=== PATIENT | male | born 1985 | race Two or more races ===

== ENCOUNTER 2017-03-29 16:26 | Emergency (ER) | payer OTHER, SELFPAY ==
[2017-03-29 16:30] VITALS: BP 133/67; PULSE 68; RESP 15; TEMP 36.6; O2SAT 99; BMI 25.8
--- NOTE | 2017-03-29 16:38 | HMH.EDNVD ---
ED Disposition Clinical Impression: Nausea, vomiting, and diarrhea Disposition: Home, Self-Care Condition on Discharge: Good Additional Instructions: 1- gotrade 16 oz q 4 2- observe 4-5 uop a day 3- follow up with a pcp, please give him a list.. 4- return if needed. - Critical Care Critical Care Time: No Attestation: On , the high probability of a clinically significant, sudden or life threatening deterioration of the following system(s) required my full and direct attention, intervention and personal management. The time I documented below is in addition to time spent performing reported procedures but includes the following listed in this critical care notation. Medical Decision Making - Medical Records Medical records reviewed: Yes: I reviewed the patient's medical records. Vital Signs: 03/29/17 16:30 Temperature 97.9 F Temperature Source Oral Pulse Rate [Right Brachial] 68 Respiratory Rate 15 Blood Pressure [Right Arm] 133/67 Blood Pressure Mean [Right Arm] 89 Blood Pressure Source [Right Arm] Automatic Cuff Blood Pressure Position [Right Arm] Sitting 02 Sat by Pulse Oximetry 99 Oxygen Delivery Method Room Air - Lab Data Lab Results 03/29/17 16:44: WBC 11.3 H, RBC 5.29, Hgb 16.4, Hct 47.9, MCV 90.5, MCH 31.0, MCHC 34.2, RDW 12.4, Plt Count 215, MPV 8.8, Neut % (Auto) 87.8 H, Lymph % (Auto) 7.3 L, [place] % (Auto) 2.8, Eos % (Auto) 1.8, Baso % (Auto) 0.2, Neut # (Auto) 10.0 H, Lymph # (Auto) 0.8, [place] # (Auto) 0.3, Eos # (Auto) 0.2, Baso # (Auto) 0.0, Total Counted 100, Neutrophils % (Manual) 91 H, Lymphocytes % (Manual) 8 L, Monocytes % (Manual) 1 L, Platelet Estimate Normal, RBC Morphology Normal 03/29/17 16:44: Sodium 139, Potassium 3.4 L, Chloride 104, Carbon Dioxide 27, Anion Gap 11.4, BUN 21 H, Creatinine 0.90, Estimated Creat Clear 127, Estimated GFR 97, Est GFR ( Amer) 118, Glucose 103, Calcium 8.5, Total Bilirubin 0.8, AST 13 L, ALT 33, Alkaline Phosphatase 84, Troponin I < 0.02, Total Protein 7.5, Albumin 4.1, Globulin 3.4 H, Albumin/Globulin Ratio 1.2, Lipase 66 L 03/29/17 16:44: Magnesium 1.7 Result diagrams: 03/29/17 16:44 03/29/17 16:44 Orders (Tests/Meds): ED MEDICATIONS Discontinued Medications Generic Name Dose Route Start Last Admin Trade Name Miri PRN Reason Stop Dose Admin Sodium Chloride 1,000 mls @ 999 mls/hr 03/29/17 16:45 03/29/17 16:50 Sod Chlor 0.9% 1000ml Bag IV 03/29/17 17:45 999 mls/hr .Q1H1M MANUEL Administration Ondansetron HCl 4 mg 03/29/17 16:37 03/29/17 16:50 Zofran 4mg/2ml Vial IV 03/29/17 16:38 4 mg ONCE ONE Administration Potassium Chloride 20 meq 03/29/17 17:43 03/29/17 17:50 Klor-Con 20meq Tablet PO 03/29/17 17:44 20 meq ONCE ONE Administration ORDERS Category Date Time Status Acute abdomen XR series [XR acute abdomen series] Stat Exams 03/29/17 16:45 Taken Diarrhea Panel, PCR Stat Lab 03/29/17 16:37 Ordered Urinalysis and Microscopic Stat Lab 03/29/17 16:36 Ordered - Radiology Data #1 Image(s): Chest, Abdomen Image Reviewed: Yes I reviewed the patient's radiology image - Joel Inquiry Pt receiving controlled substance: No Joel was queried for this patient: No Medical Decision Making Narrative: The patient felt better he received supplemental potassium and tolerated clear liquid intake. He did not want to donate urine or stool sample for examination. Quested to be discharged. I advised him for clear liquids for 2 days before he goes on soft diet. No spicy food. He will need to follow-up with a primary care physician. He will need to return if symptoms persist. Nausea/Vomiting/Diarrhea HPI - General Stated complaint: Vomiting, Diaherra, stomach ache - History of Present Illness HPI Narrative: 31 years old [place] male. With history of congenital heart disease and left elbow fracture as a child. Currently he has no medical problems as and is not
[2017-03-29 16:41] VITALS: BMI 25.8
--- NOTE | 2017-03-29 16:41 | ED_ITS ---
ED Disposition Clinical Impression: Nausea, vomiting, and diarrhea Disposition: Home, Self-Care Condition on Discharge: Good Additional Instructions: 1- gotrade 16 oz q 4 2- observe 4-5 uop a day 3- follow up with a pcp, please give him a list.. 4- return if needed. - Critical Care Critical Care Time: No Attestation: On , the high probability of a clinically significant, sudden or life threatening deterioration of the following system(s) required my full and direct attention, intervention and personal management. The time I documented below is in addition to time spent performing reported procedures but includes the following listed in this critical care notation. Medical Decision Making - Medical Records Medical records reviewed: Yes: I reviewed the patient's medical records. Vital Signs: 03/29/17 16:30 Temperature 97.9 F Temperature Source Oral Pulse Rate [Right Brachial] 68 Respiratory Rate 15 Blood Pressure [Right Arm] 133/67 Blood Pressure Mean [Right Arm] 89 Blood Pressure Source [Right Arm] Automatic Cuff Blood Pressure Position [Right Arm] Sitting 02 Sat by Pulse Oximetry 99 Oxygen Delivery Method Room Air - Lab Data Lab Results 03/29/17 16:44: WBC 11.3 H, RBC 5.29, Hgb 16.4, Hct 47.9, MCV 90.5, MCH 31.0, MCHC 34.2, RDW 12.4, Plt Count 215, MPV 8.8, Neut % (Auto) 87.8 H, Lymph % (Auto ) 7.3 L, [place] % (Auto) 2.8, Eos % (Auto) 1.8, Baso % (Auto) 0.2, Neut # (Auto) 10.0 H, Lymph # (Auto) 0.8, [place] # (Auto) 0.3, Eos # (Auto) 0.2, Baso # (Auto) 0.0, Total Counted 100, Neutrophils % (Manual) 91 H, Lymphocytes % (Manual) 8 L , Monocytes % (Manual) 1 L, Platelet Estimate Normal, RBC Morphology Normal 03/29/17 16:44: Sodium 139, Potassium 3.4 L, Chloride 104, Carbon Dioxide 27, Anion Gap 11.4, BUN 21 H, Creatinine 0.90, Estimated Creat Clear 127, Estimated GFR 97, Est GFR ( Amer) 118, Glucose 103, Calcium 8.5, Total Bilirubin 0.8, AST 13 L, ALT 33, Alkaline Phosphatase 84, Troponin I < 0.02, Total Protein 7.5, Albumin 4.1, Globulin 3.4 H, Albumin/Globulin Ratio 1.2, Lipase 66 L 03/29/17 16:44: Magnesium 1.7 Result diagrams: 03/29/17 16:44 03/29/17 16:44 Orders (Tests/Meds): ED MEDICATIONS Discontinued Medications Generic Name Dose Route Start Last Admin Trade Name Freq PRN Reason Stop Dose Admin Sodium Chloride 1,000 mls @ 999 mls/hr 03/29/17 16:45 03/29/17 16:50 Sod Chlor 0.9% 1000ml Bag IV 03/29/17 17:45 999 mls/hr .Q1H1M MANUEL Administration Ondansetron HCl 4 mg 03/29/17 16:37 03/29/17 16:50 Zofran 4mg/2ml Vial IV 03/29/17 16:38 4 mg ONCE ONE Administration Potassium Chloride 20 meq 03/29/17 17:43 03/29/17 17:50 Klor-Con 20meq Tablet PO 03/29/17 17:44 20 meq ONCE ONE Administration ORDERS Category Date Time Status Acute abdomen XR series [XR acute abdomen series] Stat Exams 03/29/17 16:45 Taken Diarrhea Panel, PCR Stat Lab 03/29/17 16:37 Ordered Urinalysis and Microscopic Stat Lab 03/29/17 16:36 Ordered - Radiology Data #1 Image(s): Chest, Abdomen Image Reviewed: Yes I reviewed the patient's radiology image - Joel Inquiry Pt receiving controlled substance: No Joel was queried for this patient: No Medical Decision Making Narrative: The patient felt better h
--- NOTE | 2017-03-29 16:45 | XR_ITS ---
XR acute abdomen series HISTORY: Nausea and vomiting and diarrhea ITS.REASON: NVD ORDERING PHYSICIAN: Stephy Hernandez MD PATIENT AGE: 31 years COMPARISON: None FINDINGS: Frontal view of the chest shows no acute finding. Bowel gas pattern is nonspecific. No evidence of intestinal obstruction or free air. No acute bony anomalies there is a faint density between the left L1 and L2 transverse process measuring 5 mm which could represent a ureteral stone. CT may be of further value if clinically warranted. IMPRESSION: Possible left proximal ureteral stone otherwise negative
[2017-03-29 16:56] LABS: Basophils % 0.2 % (0.1-2.0); Eosinophils # 0.2 K/mm3 (0.0-0.4); Eosinophils % 1.8 % (0.1-12.0); Hematocrit 47.9 % (42.0-52.0); Hemoglobin 16.4 g/dL (14.1-18.0); Lymphocytes # 0.8 K/mm3 (0.7-4.5); Lymphocytes % 7.3 K/mm3 (10-50); Mean Corpuscular HGB Conc 34.2 g/dL (31.8-35.4); Mean Corpuscular Volume 90.5 fl (80-94); Mean Platelet Volume 8.8 fl (7.4-10.4); Monocytes # 0.3 K/mm3 (0.1-1.0); Monocytes % 2.8 % (1.7-9.3); Neutrophils % 87.8 % (37.0-80.0); Platelet Count 215 K/mm3 (142-424); Red Blood Count 5.29 M/mm3 (4.60-6.20); Red Cell Distribution Width 12.4 % (11.5-17.5); White Blood Count 11.3 K/mm3 (4.8-10.8)
[2017-03-29 16:58] LABS: MANUAL DIFFERENTIAL MANUAL DIFFERENTIAL (MANUAL DIFF)
[2017-03-29 17:00] LABS: Magnesium 1.7 mg/dL (1.4-2.2)
[2017-03-29 17:08] LABS: Alanine Aminotransferase 33 U/L (12-78); Albumin Level 4.1 gm/dL (3.4-5.0); Albumin/Globulin Ratio 1.2 (1.1-1.8); Alkaline Phosphatase 84 U/L (46-116); Anion Gap 11.4 mEq/L (5-15); Aspartate Amino Transferase 13 U/L (15-37); Bilirubin,Total 0.8 mg/dL (0.2-1.0); Blood Urea Nitrogen 21 mg/dL (7-18); Calcium 8.5 mg/dL (8.5-10.1); Carbon Dioxide 27 mmol/L (21.0-32.0); Chloride 104 mmol/L (98-107); Creatinine Clearance Estimated 127 mL/min (0-300); Estimated Glomerular Filt Rate 97 ml/min (>60); GFR (African American) 118 ML/MIN (>60); Globulin 3.4 gm/dl (1.3-3.2); Glucose 103 mg/dL (74-106); Lipase 66 u/L (73-393); Potassium 3.4 mmoL/L (3.5-5.1); Sodium 139 mmol/L (136-145); Total Protein,Serum 7.5 gm/dL (6.4-8.2); Troponin I < 0.02 ng/ml (0.00-0.06)
[2017-03-29 17:19] LABS: Lymphocytes % 8 % (10-50); Monocytes % 1 % (2-9); Neutrophils % 91 % (42-76); Platelet Estimate Normal; RBC Morphology Normal; Total Cells Counted 100
[2017-03-29 18:27] VITALS: BP 120/71; PULSE 69; RESP 16; TEMP 36.9; O2SAT 100
== END 2017-03-29 18:28 | disposition home or self-care (01) ==
PROVIDERS: Emergency Provider Emergency Medicine
DX: R11.2 Nausea with vomiting, unspecified (principal); R19.7 Diarrhea, unspecified
CPT/HCPCS: 74021; 80053; 83690; 83735; 84484; 85007; 85025; 96365; 96374; 96375; 99283; J2405

== ENCOUNTER 2019-06-03 09:44 | Emergency (ER) | payer OTHER, SELFPAY ==
[2019-06-03 09:50] VITALS: BP 135/86; PULSE 70; RESP 16; TEMP 36.9; O2SAT 97; BMI 22.8
--- NOTE | 2019-06-03 10:28 | HMH.EDDENT ---
ED Disposition Clinical Impression: Toothache, Dental caries, Fracture of tooth Disposition: Home, Self-Care Condition on Discharge: Good Instructions: Tooth Abscess, DI for Chronic Pain -- Adult Prescriptions: clindamycin HCL [Clindamycin HCl] 300 mg PO TID 10 Days #30 cap Transmission Status: Pending to [facility] Ketorolac Tromethamine [Toradol 10mg tablet] 10 mg PO Q6H 5 Days #20 tab Transmission Status: Pending to [facility] Referrals: Provider,Referral, [Primary Care Provider] - - Critical Care Critical Care Time: No Attestation: On 06/03/19, the high probability of a clinically significant, sudden or life threatening deterioration of the following system(s) required my full and direct attention, intervention and personal management. The time I documented below is in addition to time spent performing reported procedures but includes the following listed in this critical care notation. Medical Decision Making - Medical Records Medical records reviewed: Yes: I reviewed the patient's medical records. - Joel Inquiry Pt receiving controlled substance: No Vital Signs: 06/03/19 09:50 Temperature 98.4 F Temperature Source Oral Pulse Rate [Right Radial] 70 Respiratory Rate 16 Blood Pressure [Right Arm] 135/86 Blood Pressure Mean [Right Arm] 102 Blood Pressure Source [Right Arm] Automatic Cuff Blood Pressure Position [Right Arm] Sitting 02 Sat by Pulse Oximetry 97 Oxygen Delivery Method Room Air - Lab Data Lab results reviewed: Yes: I reviewed the patient's lab results. Dental HPI - General Chief complaint: Dental/Oral Stated complaint: tooth ache Time Seen by Provider: 06/03/19 10:28 Mode of Arrival: Ambulatory Limitations: No Limitations Description of Symptoms (Recalled from ER Triage Doc. by RN): Pt c/o R sided dental pain on top and bottom of mouth x2 days. - History of Present Illness HPI Narrative: 33-year-old male presents the ED complaining of tooth pain. He states that 1 of his bottom teeth has fractured and since then he has had some jaw swelling and some pain that is radiated from the outer part of his jaw up to the side of his head. Patient rates his pain as sharp and states his pain is currently 7 out of 10. He states exacerbating factors including drinking cold fluids and eating. Alleviating factors include warm liquids. Patient denies any recent fever shakes or chills. Patient denies any nausea vomiting or diarrhea. MD Complaint: tooth pain Onset (ago): hour(s) Duration: constant Severity: moderate Severity scale (1-10): 5 Relieving factors: nothing Exacerbating factors: chewing, cold Context: history of dental caries - Related Data Previous Rx's Medication Instructions Recorded Ketorolac Tromethamine [Toradol 10 mg PO Q6H 5 Days #20 tab 06/03/19 10mg tablet] clindamycin HCL [Clindamycin HCl] 300 mg PO TID 10 Days #30 cap 06/03/19 Allergies Allergy/AdvReac Type Severity Reaction Status Date / Time No Known Allergies Allergy Verified 06/03/19 09:55 [facility] History - Hepatitis A Screen Drug use history?: No High risk sexual behaviors?: No History of sexually transmitted infection?: No Currently employed?: No Childcare worker?: No Do you have indoor plumbing?: Yes Do you have electricity?: Yes Attestation statement:: This patient has been screened for Hepatitis A risk factors. I have reviewed the patient's past medical history: Yes Medical History: Denies:: Cancer, Diabetes Mellitus Type 1, Diabetes Mellitus Type 2, MRSA Laterality Cases: Left: Other Amputation: No Fractures: Yes (left arm) - Social History Smoking Status: Current every day smoker Tobacco Type: cigarettes # Packs/Day (cigarettes): 1 Alcohol Intake: never Occupational Status: employed ROS Obtained: Yes All systems reviewed & no additional complaints - Constitutional Constitutional: Reports system reviewed and no additional complaints
[2019-06-03 11:06] VITALS: BP 120/85; PULSE 87; RESP 20; TEMP 36.8; O2SAT 98
== END 2019-06-03 11:06 | disposition home or self-care (01) ==
PROVIDERS: Emergency Provider Family Medicine
DX: S02.5XXA Fracture of tooth (traumatic), initial encounter for closed fracture (principal); K02.9 Dental caries, unspecified
CPT/HCPCS: 96372; 99281

== ENCOUNTER 2019-09-21 16:51 | Emergency (ER) | payer OTHER, SELFPAY ==
[2019-09-21 16:55] VITALS: BP 161/79; PULSE 78; RESP 16; TEMP 36.9; O2SAT 98; BMI 25.0
[2019-09-21 17:17] VITALS: BP 161/79; PULSE 78; RESP 16; TEMP 36.9; O2SAT 98; BMI 25.0
--- NOTE | 2019-09-21 17:17 | XR_ITS ---
PROCEDURE: XR SOFT TISSUE NECK CLINICAL INDICATION: POSSIBLE SWALLOWED GLASS COMPARISON: No exams were available for comparison FINDINGS: Curvature and alignment of the cervical spine. C1 through C7 appear intact. The hyoid bone appears normal. The pre versus tibial soft tissues are normal. There are no opaque or semi opaque foreign bodies within the soft tissues. IMPRESSION: No acute findings. Dictated by: Dr. Bernardino Cevallos MD 09/21/2019 18:40 Dr. Bernardino Cevallos MD in [place] 09/21/2019 18:40
--- NOTE | 2019-09-21 17:25 | HMH.EDUTC ---
[place] Disposition Clinical Impression: Acid reflux Qualifiers: Esophagitis presence: esophagitis presence not specified Qualified Code(s): K21.9 - Gastro-esophageal reflux disease without esophagitis Disposition: Home, Self-Care Condition on Discharge: Good Instructions: Heartburn -- Overview, GERD Diet Additional Instructions: Avoid foods that make your heart burn worse. Don't eat late in the evening before you go to bed. Follow up with your primary physician. GO TO THE ER FOR ANY WORSENING SYMPTOMS OR CONCERNS, ESPECIALLY ANY RECTAL BLEEDING OR ABDOMINAL PAIN Prescriptions: Omeprazole [Omeprazole 20mg Capsule] 20 mg PO DAILY #30 cap Transmission Status: Received by [facility] Referrals: PCP,No [Primary Care Provider] - Time of Disposition: 17:50 Medical Decision Making - Medical Records Medical records reviewed: No: I reviewed the patient's medical records. - Joel Inquiry Pt receiving controlled substance: No Vital Signs: 09/21/19 16:55 09/21/19 17:17 09/21/19 17:54 Temperature 98.4 F 98.4 F 97.9 F Temperature Source Oral Oral Pulse Rate 78 Pulse Rate [Left Radial] 78 78 Respiratory Rate 16 16 19 Blood Pressure 141/80 H Blood Pressure [Left Arm] 161/79 H 161/79 H Blood Pressure Mean [Left Arm] 106 106 Blood Pressure Source [Left Arm] Automatic Cuff Automatic Cuff Blood Pressure Position [Left Arm] Sitting 02 Sat by Pulse Oximetry 98 98 Oxygen Delivery Method Room Air Room Air - Radiology Data #1 Image(s): Other (neck-soft tissue) Image Reviewed: Yes I reviewed the patient's radiology image, Yes I have reviewed radiologist's interpretation Preliminary Findings: Normal/NAD PROCEDURE: XR SOFT TISSUE NECK CLINICAL INDICATION: POSSIBLE SWALLOWED GLASS COMPARISON: No exams were available for comparison FINDINGS: Curvature and alignment of the cervical spine. C1 through C7 appear intact. The hyoid bone appears normal. The pre versus tibial soft tissues are normal. There are no opaque or semi opaque foreign bodies within the soft tissues. IMPRESSION: No acute findings. Dictated by: Dr. Bernardino Cevallos MD 09/21/2019 18:40 Dr. Bernardino Cevallos MD in [place] 09/21/2019 18:40 #2 Image(s): Abdomen Image Reviewed: Yes I reviewed the patient's radiology image, Yes I have reviewed radiologist's interpretation Preliminary Findings: Normal/NAD PROCEDURE: XR KUB CLINICAL INDICATION: POSSIBLE GLASS IN STOMACH COMPARISON: CT ABDPELW/O CT ABD PELVIS W/O CONTRAST from 04/13/2016 FINDINGS: Gas pattern-The bowel gas pattern is unremarkable with scattered stool and gas seen in the ascending transverse and descending colon. There is no significant small bowel gas. There is a moderate amount of food particles and gas within the upper portion of the stomach which could certainly obscure small glass fragment. No definite opaque foreign bodies are seen in the expected GI tract location. No obvious obstruction. Calcifications-No abnormal calcifications are evident. No obvious renal or ureteral calculi. Bones-No acute bony anomalies evident. IMPRESSION: No acute findings and no definite foreign bodies identified Dictated by: Dr. Bernardino Cevallos MD 09/21/2019 19:15 Dr. Bernardino Cevallos MD in [place] 09/21/2019 19:15 [place] HPI - General Stated complaint: AO [id number] possible glass in throat Time Seen by Provider: 09/21/19 17:45 Mode of Arrival: Ambulatory Source of Information: Patient Limitations: No Limitations Description of Symptoms (Recalled from Triage Doc. by RN): Pt reports he is concerned he may have swallowe a piece of glass yesterday r/t he noticied while drinking coke from a glass bottle that is was broken. States he possibly felt something sharp as he was swallowing. Pt denies SOA, no bleeding noted, denies vomiting. Pt also reports he has had intermittent heartburn and intermittent diarrhea for the past week. HEENT Symptoms (R
[2019-09-21 17:54] VITALS: BP 141/80; PULSE 78; RESP 19; TEMP 36.6; O2SAT 99
== END 2019-09-21 17:54 | disposition home or self-care (01) ==
PROVIDERS: Emergency Provider Nurse Practitioner Family
DX: K21.9 Gastro-esophageal reflux disease without esophagitis (principal); F17.210 Nicotine dependence, cigarettes, uncomplicated
CPT/HCPCS: 70360; 74018; 99201

== ENCOUNTER 2019-11-13 15:39 | Emergency (ER) | payer OTHER, SELFPAY ==
[2019-11-13 15:58] VITALS: BP 110/77; PULSE 64; RESP 14; TEMP 36.7; O2SAT 99; BMI 25.0
--- NOTE | 2019-11-13 16:02 | HMH.EDUTC ---
[facility] [place] Disposition Clinical Impression: Encounter for laboratory testing for COVID-19 virus, Nasal congestion Disposition: Home, Self-Care Condition on Discharge: Good Instructions: Preventing the Spread of Coronavirus Discharge Instructions Additional Instructions: *Monitor Temp, Over the counter Motrin or Tylenol as directed/as needed Tylenol every 4 hours and Motrin every 6 hours (as long as your family doctor has told you that you can take it) for fever or pain. and straight to ER if unable to lower temp less than 101.0 after medication given *Warm salt water gargles may help to soothe the throat *Throat Lozenges *Warm fluids like tea with honey may help to soothe the throat *Sleep elevated *Humidifier/Vaporizer *Flonase 2 sprays in each nostril daily but be aware that it may take 2-3 days before you notice improvement Follow up IMMEDIATELY for new or worsening symptoms or no Noticeable improvement over the next 48-72 hours. 911 for difficulty breathing or swallowing You was tested for today for COVID19 your test result should be back later this evening, you may call back later this evening to see if your test results are back and the result You was given a handout with instructions for Self Quarantine and Self isolation for while you wait on test results and what to do if they are positive Prescriptions: Fluticasone Propionate [Flonase 50mcg nasal spray 16gm] 1 - 2 spr NS DAILY #1 bottle Transmission Status: Pending to [facility] Referrals: PCP,No [Primary Care Provider] - As needed Forms: Work/School Release Time of Disposition: 16:05 Medical Decision Making - Joel Inquiry Pt receiving controlled substance: No Joel was queried for this patient: No Vital Signs: 11/13/19 15:58 Temperature 98.0 F Temperature Source Oral Pulse Rate [Right Brachial] 64 Respiratory Rate 14 Blood Pressure [Right Arm] 110/77 Blood Pressure Mean [Right Arm] 88 Blood Pressure Source [Right Arm] Automatic Cuff Blood Pressure Position [Right Arm] Sitting 02 Sat by Pulse Oximetry 99 Oxygen Delivery Method Room Air Orders (Tests/Meds): ORDERS Category Date Time Status Covid-19 Nasal PCR ([facility]) Routine Lab 11/13/19 15:59 Ordered [facility] [place] HPI - General Stated complaint: Wants COVID Test Time Seen by Provider: 11/13/19 16:04 Mode of Arrival: Ambulatory Source of Information: Patient Limitations: No Limitations Description of Symptoms (Recalled from Triage Doc. by RN): PATIENT REQUESTING COVID TEST. STATES HIS ROOMMATE TESTED POSITIVE YESTERDAY. PATIENT DENIES ANY SYMPTOMS HEENT Symptoms (Recalled from RN notes): No Resp Symptoms (Recalled from RN notes): No Skin Symptoms (Recalled from RN notes): No MS Symptoms (Recalled from RN notes): No Functional Status (Recalled from RN notes): WNL - History of Present Illness Provider Complaint: Patient states that his room mate tested positive for COVID yesterday and he has been having sore throat and runny nose but feels like it is allergies but he gets to see his kids tomorrow and wanted to get checked to make sure that he didnt have COVID before he gets around his kids - Related Data Previous Rx's Medication Instructions Recorded Fluticasone Propionate [Flonase 1 - 2 spr NS DAILY #1 bottle 11/13/19 50mcg nasal spray 16gm] Allergies Allergy/AdvReac Type Severity Reaction Status Date / Time No Known Allergies Allergy Verified 06/03/19 09:55 - Worker's Comp Is this a Worker's Comp case?: No [facility] History - Hepatitis A Screen Drug use history?: No High risk sexual behaviors?: No History of sexually transmitted infection?: No Currently employed?: No Childcare worker?: No Do you have indoor plumbing?: Yes Do you have electricity?: Yes Attestation statement:: This patient has been screened for Hepatitis A risk factors. I have reviewed the patient's past medical history: Yes Medical History: Denies:: Cancer, Diabetes Mellitus Type 1, Di
[2019-11-13 16:12] VITALS: BP 110/77; PULSE 64; RESP 14; TEMP 36.7; O2SAT 99
== END 2019-11-13 16:15 | disposition home or self-care (01) ==
PROVIDERS: Emergency Provider Nurse Practitioner
DX: Z20.828 Contact with and (suspected) exposure to other viral communicable diseases (principal); F17.210 Nicotine dependence, cigarettes, uncomplicated
CPT/HCPCS: 99201; U0003